=== PATIENT | female | born 1935 | race Caucasian/White ===

== ENCOUNTER 2016-06-16 00:59 | Inpatient (IN) | payer OTHER ==
[~2016-06-16] VITALS: Ht 165.1 cm; Wt 52.6 kg
--- NOTE | 2016-06-16 | NUR ---
MS RN NOTES: PATIENT DID NOT RECEIVE VANCOCIN 125MG PO DUE TO BEING NPO AND BEING AT RISK FOR ASPIRATION.
--- NOTE | 2016-06-16 01:00 | NUR ---
to bed 1 bib paramedics c/o n/v since last night. pt aaox3 no acute distress noted, resp even and unlabore. place pt on cardiac monitoring, continuous pox, o2@2l/nc. er md at bedside to eval pt with orders received. will carry out orders. pt pale, cool, nondiaphoretic. will continue to monitor pt closely.
--- NOTE | 2016-06-16 01:05 | NUR ---
started sl 18g to L forearm, blood drawn and sent to lab.
[2016-06-16] MEDS ORDERED: IV NS 0.9% 500 ML IV ONE (01:07)
[2016-06-16] MEDS ORDERED: IV SET PRIMARY 1 EA INFUS.SET MC ONE ×3 (01:07→12:33)
[2016-06-16] MEDS ORDERED: ONDANSETRON HCL/PF 4 MG/2 ML VIAL ONE ×2 (01:07→02:11)
[2016-06-16 01:17] LABS: BASOPHILS # (AUTO) 0.1 /CMM (0.0-0.2); BASOPHILS % (AUTO) 0.9 % (0.0-2.0); EOSINOPHILS % (AUTO) 0.2 % (0.0-6.0); HEMATOCRIT 38 % (33-45); HEMOGLOBIN 12.2 g/dL (11.5-14.8); LYMPHOCYTES # (AUTO) 0.3 /CMM (0.8-4.8); MEAN CORPUSCULAR HEMOGLOBIN 28 PG (26.0-33.0); MEAN CORPUSCULAR HGB CONC 33 g/dl (31.0-36.0); MEAN CORPUSCULAR VOLUME 85 fL (82-100); MONOCYTES # (AUTO) 0.1 /CMM (0.1-1.30); MONOCYTES % (AUTO) 0.6 % (2.0-12.0); NEUTROPHILS # (AUTO) 13.1 /CMM (1.8-8.9); NEUTROPHILS % (AUTO) 96.3 % (43.0-81.0); PLATELET COUNT (AUTO) 435 /CMM (150-450); RDW COEFFICIENT OF VARIATION 16.2 (11.5-15.0); RED BLOOD CELL COUNT(AUTO) 4.41 MIL/uL (4.0-5.2); WHITE BLOOD COUNT (AUTO) 13.6 K/uL (4.3-11.0)
--- NOTE | 2016-06-16 01:17 | NUR ---
pt transported to radiology for ct abd/pelvis.
[2016-06-16] MEDS ORDERED: LORA0.5T PO (01:21)
[2016-06-16] MEDS ORDERED: MIRT15TA3 PO (01:21)
[2016-06-16] MEDS ORDERED: AMLO5TAB2 PO (01:21)
[2016-06-16] MEDS ORDERED: CALC-25 PO (01:21)
[2016-06-16] MEDS ORDERED: RIVA1TAB PO (01:21)
[2016-06-16] MEDS ORDERED: TAMS-12 PO (01:21)
[2016-06-16] MEDS ORDERED: ATEN25TA PO (01:21)
[2016-06-16] MEDS ORDERED: ZOLP10TA6 PO (01:21)
[2016-06-16] MEDS ORDERED: LISI1TAB13 PO (01:21)
[2016-06-16] MEDS ORDERED: OLAN2.5T3 PO (01:21)
[2016-06-16] MEDS ORDERED: MELA5TAB21 PO (01:21)
[2016-06-16] MEDS ORDERED: MAGN400O4 PO (01:21)
[2016-06-16] MEDS ORDERED: BUSP10TA3 PO (01:21)
[2016-06-16] MEDS ORDERED: PARO10TA3 PO (01:21)
[2016-06-16] MEDS ORDERED: HYDR-3652 PO (01:21)
[2016-06-16 01:30] LABS: CARBON DIOXIDE 25 mmol/L (21-32); CHLORIDE 108 mmol/L (98-107); CREATININE 0.5 mg/dL (0.6-1.3); GLUCOSE 176 mg/dL (74-106); POTASSIUM 3.4 mmol/L (3.5-5.1); SODIUM SERUM 143 mmol/L (136-145); UREA NITROGEN, BLOOD 14 mg/dL (7-18)
[2016-06-16] MEDS ORDERED: IV NS 0.9% 500 ML BAG IV ONE (01:30)
[2016-06-16] MEDS ORDERED: ONDANSETRON HCL/PF 4 MG/2 ML VIAL IVP ONE (01:30)
[2016-06-16 01:35] LABS: ALANINE AMINOTRANSFERASE 10 U/L (12-78); ALBUMIN 1.8 g/dL (3.4-5.0); ALKALINE PHOSPHATASE 85 U/L (46-116); ASPARTATE AMINOTRANSFERASE 10 U/L (15-37); BILIRUBIN,DIRECT 0.1 mg/dL (0.0-0.2); BILIRUBIN,TOTAL 0.3 mg/dL (0.2-1.0); LIPASE 40 U/L (73-393); TOTAL PROTEIN, SERUM 5.4 g/dL (6.4-8.2)
[2016-06-16 01:37] LABS: TROPONIN I < 0.017 ng/mL (0.00-0.056)
--- NOTE | 2016-06-16 01:50 | NUR ---
female rn nandini at bedside for I&O cath, urine sample collected and sent to lab.
[2016-06-16 01:55] LABS: INR 1.16 (0.87-1.13); PROTHROMBIN TIME 12.2 SECS (9.5-12.7)
--- NOTE | 2016-06-16 02:13 | NUR ---
noted pt vomiting. er md made aware with orders recieved. will carry out orders.
--- NOTE | 2016-06-16 02:16 | NUR ---
rn at bedside to medicate pt.
[2016-06-16 02:28] LABS: APPEARANCE,URINE CLOUDY (CLEAR); COLOR,URINE YELLOW (YELLOW)
[2016-06-16 02:29] LABS: BILIRUBIN,URINE NEGATIVE (NEGATIVE); BLOOD, URINE 3+ Ery/uL (NEGATIVE); KETONES,URINE 1+ (NEGATIVE); LEUKOCYTE ESTERASE ,URINE 2+ (NEGATIVE); NITRITE, URINE NEGATIVE (NEGATIVE); PROTEIN,URINE TRACE mg/dl (NEGATIVE); UGLUCOSE NEGATIVE (NEGATIVE); UROBILINOGEN,URINE 0.2 EU/dL (0.2)
[2016-06-16] MEDS ORDERED: PIPERACILLIN /TAZOBACTAM 3.375 G in IV D5W 50 ML IV ONE (02:30)
[2016-06-16] MEDS ORDERED: ONDANSETRON HCL/PF 4 MG/2 ML VIAL IV ONE (02:30)
[2016-06-16] MEDS ORDERED: LEVOFLOXACIN 750 MG /D5W 150ML PIGGYBACK IV ONE (02:30)
[2016-06-16 02:32] LABS: ADD URINE CULTURE YES; BACTERIA,URINE 2+ /HPF (None Seen); RBC,URINE 51-80 /HPF (0-2); WBC,URINE 81-100 /HPF (0-3)
[2016-06-16 02:33] LABS: SQUAMOUS EPITHELIAL CELL,UR Few /HPF (None Seen)
[2016-06-16 02:34] LABS: CALCIUM OXALATE CRYSTALS,UR Few /HPF (None Seen); MUCUS,URINE Moderate /LPF (None Seen); YEAST,URINE Many /HPF (None Seen)
--- NOTE | 2016-06-16 02:46 | NUR ---
er talking to dr. yoan juarez pt admission.
[2016-06-16] MEDS ORDERED: PIPERACILLIN /TAZOBACTAM 3.375 G VIAL IV ONE (02:47)
--- NOTE | 2016-06-16 02:57 | NUR ---
report called to [employer].
--- NOTE | 2016-06-16 02:58 | NUR ---
precision layout worker at bedside for blood culture draw.
[2016-06-16] MEDS ORDERED: LORAZEPAM INJ 2 MG/ML VIAL IVP PRN (03:00)
[2016-06-16] MEDS ORDERED: ONDANSETRON HCL/PF 4 MG/2 ML VIAL IVP PRN (03:00)
[2016-06-16] MEDS ORDERED: ACETAMINOPHEN 325 MG TABLET PO PRN (03:00)
[2016-06-16] MEDS ORDERED: IV NS 0.9% 1,000 ML BAG IV ONE (03:00)
--- NOTE | 2016-06-16 03:22 | NUR ---
blood cultures drawn.
--- NOTE | 2016-06-16 03:40 | NUR ---
report called to [employer] [facility]. will transport pt via acls protocol.
--- NOTE | 2016-06-16 03:49 | NUR ---
TELE/RN NOTES PER CHARGE NURSE PATIENT WILL BE ADMITTED AT [facility].
[2016-06-16] MEDS ORDERED: IV SET PRIMARY PUMP SET 1 EA INFUS.SET MC ONE ×3 (03:56→22:45)
[2016-06-16] MEDS ORDERED: LEVOFLOXACIN 750 MG /D5W 150ML 150 ML IV ONE (03:56)
[2016-06-16] MEDS ORDERED: LORAZEPAM INJ 2 MG/ML VIAL ONE (03:57)
[2016-06-16] MEDS ORDERED: LORAZEPAM INJ 2 MG/ML VIAL IV PRN (04:00)
[2016-06-16] MEDS ORDERED: METRONIDAZOLE 500MG/ NS 100ML 100 ML IV SCH (05:00)
--- NOTE | 2016-06-16 05:02 | NUR ---
pt transported via acls protocol to tele room 320-1.
--- NOTE | 2016-06-16 05:10 | NUR ---
TELE/RN NOTES RECEIVED PATIENT FROM ER 80 YO FEMALE FROM LONG TERM REPORTED N/V WITH DX PNA/UTI. ALERTX2, COMFUSED AND FORGETFUL.REQUIRE TELE MONITORING AT SR 70.IV ON LEFT HAND GAUGE 18. ATB ADMINISTERED AND CONTINUED IN THE UNIT. SKIN WITH REDNESS ON SACRUM. CONTRATED RIGHT HAND AND BLE FEET. WILL PROVIDE CARE AND ENDORSE TO AM RN FOR JUAN. RECONCILE MED LIST.WILL CONTINUE TO MONITOR.
[2016-06-16 06:06] VITALS: BP 130/64
--- NOTE | 2016-06-16 06:50 | NUR ---
TELE/RN NOTES PHARMACY WAS CONTACTED REGARDING TIME DELAY FOR MEDICATION THAT NEEDS TO BE ADMINISTERED BY 0300 AND 0500. INFORMED THAT PATIENT WAS RECEIVED AT THE UNIT AT PAST 0510 THAT WAS NOT ABLE TO ADMINISTER BY TRANSIT VEHICLE INSPECTOR. PHARMACY INFORMED AND RN AM WILL BE ENDORSE FOR AM RN ADMINISTRATION OF MEDICATION FOR 0300 AND 0500 RESPECTIVELY.
--- NOTE | 2016-06-16 06:53 | NUR ---
TELE/RN NOTES PATIENT DAUGHTER CALLED AND GAVE NUMBER FOR ANY CONCERNS NAME IS VISHNU BOOGIE AT [phone].
--- NOTE | 2016-06-16 07:27 | NUR ---
CORE PASTER NOTES PATIENT RECEIVED ASLEEP IN BED AND AROUSABLE. ALERT AND RESPONSIVE TO VERBAL STIMULI. NO SIGNS OF PAIN NOTED. ON TELE-MONITORING WITH READING OF SR AND HR OF 82. CHECKED 02 SAT , PATIENT WITH SP02 OF 89%, L D RN MURILLO MADE AWARE WITH ORDER TO GIVE 02 INHALATION VIA N/C AT 2LPM. HEAD OF BED ELEVATED. PATIENT WITH IV ACCESS ON LEFT HAND INTACT AND PATENT. IVF OF NS STARTED ORDERED. CALL LIGHT WITHIN REACH, BED LOCKED AND LOW. ALL SAFETY PRECAUTIONS MAINTAINED. WILL CONTINUE TO MONITOR ACCORDINGLY.
[2016-06-16] MEDS ORDERED: RIVA10TA PO (07:33)
[2016-06-16] MEDS ORDERED: MELA5TAB PO (07:33)
[2016-06-16] MEDS ORDERED: MIRT7.5T10 PO (07:33)
[2016-06-16] MEDS ORDERED: MAGN400O6 PO (07:33)
[2016-06-16] MEDS: POTASSIUM CL. PREMIX PERIPHER. 50 ML IV SCH ×4 (07:54→12:42)
[2016-06-16 08:00] VITALS: BP 113/62
[2016-06-16] MEDS ORDERED: CEFTRIAXONE 1 G in IV D5W 50 ML IV SCH ×2 (08:00→10:00)
[2016-06-16] MEDS ORDERED: IV NS 0.9% 1,000 ML IV ONE (08:00)
[2016-06-16] MEDS ORDERED: SECONDARY IV SET 1 EA INFUS.SET MC ONE ×3 (08:02→22:41)
[2016-06-16] MEDS ORDERED: LORAZEPAM 0.5 MG TABLET PO PRN (10:00)
[2016-06-16] MEDS ORDERED: HYDROCODONE/APAP 5/325MG 1 EACH TABLET PO PRN (10:00)
[2016-06-16] MEDS ORDERED: ZOLPIDEM TARTRATE 10 MG TABLET PO PRN (10:00)
[2016-06-16] MEDS ORDERED: MAGNESIUM HYDROXIDE 30 ML UDC PO PRN (10:00)
[2016-06-16] MEDS ORDERED: Medication Not On Formulary EA (Melatonin 5 MG) PO PRN (10:00)
[2016-06-16] MEDS: METRONIDAZOLE 500MG/ NS 100ML 500 MG in PREMIX 1 EA IV SCH ×3 (10:20→22:46)
[2016-06-16] MEDS: PANTOPRAZOLE 40 MG VIAL IV SCH (10:29)
--- NOTE | 2016-06-16 10:34 | NUR ---
RN NOTES PATIENT V/S SIGNS AT 0830H WAS 118/74MMHG, P 89, RR 20, T 97.6F AND 02 SAT 94%. RECOVERY COLLECTOR MURILLO MADE AWARE AND SAID TO PUT IVF OF NS @ 50ML/HR AND WILL ORDER CHEST X-RAY AND TO COLLECT STOOL FOR CULTURE. WILL CONTINUE TO MONITO
--- NOTE | 2016-06-16 10:39 | NUR ---
RN NOTES PATIENT WITH POTASIUM LEVEL OF 1.4, BEING REPLACED WITH 4 BAGS OF 10MEQ IN 50ML DEXTROSE WATER. WILL CONTINUE TO MONITOR.
[2016-06-16] MEDS ORDERED: LEVOFLOXACIN 750 MG /D5W 150ML 750 MG in PREMIX 1 EA IV SCH (11:00)
[2016-06-16] MEDS: LISINOPRIL (20MG) 20 MG TABLET PO SCH (11:00)
[2016-06-16] MEDS: HYDROCHLOROTHIAZIDE 25 MG TABLET PO SCH (11:00)
--- NOTE | 2016-06-16 11:43 | NUR ---
RN NOTES PATIENT CHEST X-RAY DONE AWAITING FOR RESULTS. PATIENT DID LARGE BOWEL MOVEMENT X 1, NO FRESH BLOOD NOTED. STOOL COLLECTED FOR CULTURE AND CALLED LAB TO PICK-UP SPECIMEN.
--- NOTE | 2016-06-16 12:38 | NUR ---
RN NOTES PATIENT NOTED WITH LOW BP OF 87/55 AT 11AM AFTER HAVING A LARGE BOWEL MOVEMENT. Miriam MURILLO MADE AWARE AND SAID TO CLOSELY MONITOR PATIENT. AFTER 20 MINUTES, BLOOD PRESSURE WENT UP TO 125/62 MMHG. PATIENT STILL LOOKS WEAK BUT RESPONDING TO SIMPLE VERBAL COMMANDS. FAMILY AWARE OF PT'S CURRENT CONDITION. WILL CONTINUE TO CLOSELY MONITOR PATIENT.
[2016-06-16] MEDS: VANCOMYCIN 0.75 GM in IV D5W 250 ML IV SCH (12:47)
[2016-06-16] MEDS: CALCIUM CARB 250MG /VITAMIN D 1 UDTAB PO SCH ×2 (13:17→16:26)
[2016-06-16] MEDS: CEFEPIME 2 GM in IV D5W 100 ML IV SCH (13:22)
[2016-06-16] MEDS: SYSTANE ULTRA EACHEYE SCH ×2 (13:26→22:45)
[2016-06-16] MEDS ORDERED: FEE PK DOSING 1 MIN EA MC ONE (14:48)
[2016-06-16 16:00] VITALS: BP 103/57
[2016-06-16] MEDS: PAROXETINE HCL 10 MG TABLET PO SCH (16:26)
[2016-06-16] MEDS: busPIRone 5 MG TABLET PO SCH (16:26)
[2016-06-16] MEDS ORDERED: VANCOMYCIN HCL 125 MG CAPSULE PO SCH (18:00)
[2016-06-16] MEDS ORDERED: PANTOPRAZOLE 40 MG VIAL IV SCH (18:00)
--- NOTE | 2016-06-16 18:46 | NUR ---
MS RN CLOSING NOTES PATIENT IN BED WITH DAUGHTER AT BEDSIDE. NOTED MORE ALERT AND VERBALLY RESPONSIVE THIS AFTERNOON. TELE-MONITORING WAS DISCONTINUED THIS MORNING, DENIES ANY CHEST PAIN. IVF OF NS @ 50ML/HR IN PROGRESS, NO S/S OF INFILTRATION TO IV SITE NOTED. ALL NEEDS AND CARE WELL PROVIDED. DUE MEDS GIVEN ORDERED. CALL LIGHT WITHIN REACH. ALL SAFETY MEASURES IN PLACE. WILL ENDORSED TO ELEMENTARY SECRETARY NURSE FOR JUAN.
[2016-06-16] MEDS: ALBUMIN 25% 25 GM in PREMIX 1 EA IV SCH (18:58)
[2016-06-16] MEDS: VANCOMYCIN HCL 125 MG/2.5 ML ORAL.SUSP PO SCH (19:00)
--- NOTE | 2016-06-16 19:20 | NUR ---
MS RN OPENING NOTES: RECEIVED PATIENT IN BED ASLEEP. PT IS ALERT AND RESPONSIVE TO VERBAL STIMULI. NO SIGNS OR SYMPTOMS OF DISTRESS OR SOB NOTED. PT KEPT CLEAN, DRY, AND COMFORTABLE. PT ON 2LPM VIA NASAL CANNULA AND TOLERATED WELL. 02 SAT AT 99%. CALL LIGHT WITHIN PT'S REACH. BED KEPT IN LOCKED, LOWEST POSITION, AND SIDE RAILS X2 UP. PT HAS IV ON L HAND #18 AND IV ON R HAND RUNNING NORMAL SALINE AT 50ML/HR. BOTH ARE PATENT AND INTACT. WILL CONTINUE TO MONITOR PT.
[2016-06-16 20:00] VITALS: BP 121/61
[2016-06-16 20:33] VITALS: BP 121/61
[2016-06-16] MEDS: MIRTAZAPINE 15 MG TABLET PO SCH (22:00)
[2016-06-16] MEDS: OLANZAPINE 2.5 MG TABLET PO SCH (22:00)
--- NOTE | 2016-06-16 22:00 | NUR ---
MS RN NOTES: PATIENT DID NOT RECEIVE REMERON 7.5MG AND ZYPREXA 2.5MG DUE TO BEING NPO AND PATIENT BEING AT RISK FOR ASPIRATION.
[2016-06-16] MEDS: IV NS 0.9% 1,000 ML IV PRN (22:53)
[2016-06-17] MEDS: CEFEPIME 2 GM in IV D5W 100 ML IV SCH ×2 (00:38→13:08)
[2016-06-17] MEDS ORDERED: IV SET PRIMARY PUMP SET 1 EA INFUS.SET MC ONE ×2 (01:41→13:04)
[2016-06-17] MEDS: ALBUMIN 25% 25 GM in PREMIX 1 EA IV SCH ×2 (01:43→10:22)
[2016-06-17] MEDS: SYSTANE ULTRA EACHEYE SCH ×3 (04:01→20:26)
[2016-06-17] MEDS: METRONIDAZOLE 500MG/ NS 100ML 500 MG in PREMIX 1 EA IV SCH ×3 (04:02→20:26)
[2016-06-17] MEDS: VANCOMYCIN 0.75 GM in IV D5W 250 ML IV SCH (05:08)
[2016-06-17] MEDS: VANCOMYCIN HCL 125 MG/2.5 ML ORAL.SUSP PO SCH ×5 (06:00→23:47)
--- NOTE | 2016-06-17 06:37 | NUR ---
MS RN NOTES: VANCOCIN ORAL NOT ADMINISTERED AT THIS TIME, PT ON NPO PER MD, ALSO RISK FOR ASPIRATION.
[2016-06-17 06:58] LABS: BASOPHILS % (AUTO) 0.4 % (0.0-2.0); EOSINOPHILS % (AUTO) 0.1 % (0.0-6.0); HEMATOCRIT 28 % (33-45); HEMOGLOBIN 9.1 g/dL (11.5-14.8); LYMPHOCYTES # (AUTO) 0.4 /CMM (0.8-4.8); LYMPHOCYTES % (AUTO) 4.6 % (20.0-44.0); MEAN CORPUSCULAR HEMOGLOBIN 28 PG (26.0-33.0); MEAN CORPUSCULAR HGB CONC 33 g/dl (31.0-36.0); MEAN CORPUSCULAR VOLUME 86 fL (82-100); MONOCYTES # (AUTO) 0.5 /CMM (0.1-1.30); MONOCYTES % (AUTO) 6.7 % (2.0-12.0); NEUTROPHILS % (AUTO) 88.2 % (43.0-81.0); PLATELET COUNT (AUTO) 348 /CMM (150-450); RDW COEFFICIENT OF VARIATION 15.9 (11.5-15.0); RED BLOOD CELL COUNT(AUTO) 3.27 MIL/uL (4.0-5.2)
[2016-06-17 07:02] LABS: ALANINE AMINOTRANSFERASE 10 U/L (12-78); ALBUMIN 2.1 g/dL (3.4-5.0); ALKALINE PHOSPHATASE 55 U/L (46-116); ASPARTATE AMINOTRANSFERASE 9 U/L (15-37); BILIRUBIN,TOTAL 0.3 mg/dL (0.2-1.0); CALCIUM, SERUM 7.7 mg/dL (8.5-10.1); CARBON DIOXIDE 26 mmol/L (21-32); CHLORIDE 110 mmol/L (98-107); CREATININE 0.5 mg/dL (0.6-1.3); GLUCOSE 122 mg/dL (74-106); POTASSIUM 3.6 mmol/L (3.5-5.1); SODIUM SERUM 142 mmol/L (136-145); TOTAL PROTEIN, SERUM 4.8 g/dL (6.4-8.2); UREA NITROGEN, BLOOD 11 mg/dL (7-18)
[2016-06-17 07:04] LABS: INR 1.04 (0.87-1.13); PROTHROMBIN TIME 11.1 SECS (9.5-12.7)
[2016-06-17 07:07] LABS: TROPONIN I < 0.017 ng/mL (0.00-0.056)
[2016-06-17 07:13] LABS: CREATINE KINASE MB 0.6 ng/mL (0-3.6)
--- NOTE | 2016-06-17 07:13 | NUR ---
MS RN CLOSING NOTES: ALL NEEDS WERE ATTENDED. PATIENT IS IN BED ASLEEP. PT IS ALERT AND RESPONSIVE TO VERBAL STIMULI. SHE IS A/O X2 WITH CONFUSION. NO SIGNS OR SYMPTOMS OF DISTRESS OR SOB NOTED. PT KEPT CLEAN, DRY, AND COMFORTABLE. PT ON 2LPM VIA NASAL CANNULA AND TOLERATED WELL. CALL LIGHT WITHIN PT'S REACH. BED KEPT IN LOCKED, LOWEST POSITION, AND SIDE RAILS X2 UP. PT HAS IV ON L HAND #18 AND IV ON R HAND RUNNING NORMAL SALINE AT 50ML/HR. BOTH ARE PATENT AND INTACT. WILL ENDORSE TO DAY SHIFT NURSE FOR CONTINUITY OF CARE.
--- NOTE | 2016-06-17 07:15 | NUR ---
MS RN NOTES RECEIVED PATIENT IN BED, AWAKE BUT APPEARS SLEEPY. SPEECH UNCLEAR. ON OXYGEN AT 2L/MIN VIA NC, NO SOB NOTED. IV IN RIGHT HAND G 22 WITH IV NS INFUSING AT 50ML/HR. PATIENT IS NPO STATUS ORDERED. NO C/O PAIN AT THIS TIME. BED LOW AND LOCKED, SIDE RAILS UP X2. CALL LIGHT WITHIN REACH. WILL CONT TO MONITOR.
[2016-06-17 08:00] VITALS: BP_SYST 120; BP_SYST 129; BP_DIAS 72
[2016-06-17] MEDS: LISINOPRIL (20MG) 20 MG TABLET PO SCH (09:00)
[2016-06-17] MEDS: CALCIUM CARB 250MG /VITAMIN D 1 UDTAB PO SCH ×3 (09:00→17:59)
[2016-06-17] MEDS ORDERED: Medication Not On Formulary EA (Lisinopril/Hydrochlorothiazide (Lisinopril-Hctz 20-25 Mg PO SCH (09:00)
[2016-06-17] MEDS: HYDROCHLOROTHIAZIDE 25 MG TABLET PO SCH (09:00)
[2016-06-17] MEDS: PAROXETINE HCL 10 MG TABLET PO SCH ×2 (09:00→17:59)
[2016-06-17] MEDS: AMLODIPINE BESYLATE 5 MG TABLET PO SCH (09:00)
[2016-06-17] MEDS: TAMSULOSIN 0.4 MG CAP.SR.24H PO SCH (09:00)
[2016-06-17] MEDS: ATENOLOL 25 MG TABLET PO SCH (09:00)
[2016-06-17] MEDS: busPIRone 5 MG TABLET PO SCH ×3 (09:00→17:59)
[2016-06-17] MEDS: PANTOPRAZOLE 40 MG VIAL IV SCH (09:11)
--- NOTE | 2016-06-17 09:33 | NUR ---
PATIENT IN BED, SPEECH NOT CLEAR, APPEARS SLEEPY, BUT AROUSES EASILY. CURRENTLY NPO STATUS, AWAITING FOR ST EVAL. AM MEDS NON ADMINISTERED, INFORMED ENVIRONMENTAL QUALITY ANALYST-MURILLO.
[2016-06-17] MEDS ORDERED: SECONDARY IV SET 1 EA INFUS.SET MC ONE ×2 (10:20→18:14)
--- NOTE | 2016-06-17 11:12 | NUR ---
PATIENT IS SEEN BY HEMA, PATIENT MAY HAVE SIPS OF WATER ONLY.
--- NOTE | 2016-06-17 12:44 | NUR ---
PATIENT IS AWAKE, ALERT TO HER NAME AND FOLLOW SIMPLE COMMAND, ABLE TO SWALLOW SIPS OF WATER WITHOUT DIFFICULTY, NO EPISODES OF COUGHING. NOTIFIED DIRECTOR MATERNAL CHILD-MURILLO
--- NOTE | 2016-06-17 12:52 | NUR ---
PATIENT IN BED, APPEARS COMFORTABLE, NO C/O NAUSEA, NO EPISODE OF VOMITING SINCE THIS MORNING. RECEIVED PHONE CALL FROM DR. BURKS, PER MD PLACE PATIENT UNDER HIS CARE. INFORMED DR. BURKS THAT PATIENT WAS SEEN BY TURRET LATHE TENDER-MURILLO THIS MORNING AND ALSO AWAITING ST FOR EVAL. PER DR. BURKS PATIENT WAS ADMITTED FOR UTI, AND SHE CAN HAVE DIET NOW. WILL ORDER DIET AND INFORMED CHARGE TO UPDATE ASSIGN MD FOR THE PATIENT.
[2016-06-17] MEDS ORDERED: Z GUARD REMEDY 2 OZ OINT TP PRN (14:00)
[2016-06-17] MEDS: MORPHINE SULFATE INJ 2 MG/ML DISP.SYRIN IV PRN ×2 (15:33→22:16)
[2016-06-17 16:00] VITALS: BP_SYST 134; BP_SYST 137; BP_DIAS 68
--- NOTE | 2016-06-17 17:27 | NUR ---
PATIENT IS SEEN BY DR. KIMMIE GUALLPA MD REVIEWED BUN 11 CR 0.5, ORDERED TO CHANGED LEVAQUIN IV TO 500MG IV Q 24HR NOTED AND ACKNOWLEDGED.
[2016-06-17] MEDS ORDERED: LEVOFLOXACIN 500 MG /D5W 100ML 500 MG in PREMIX 1 EA IV SCH (18:00)
[2016-06-17] MEDS: RIVAROXABAN 10 MG TABLET PO SCH (18:04)
[2016-06-17] MEDS: DOCUSATE SODIUM 100 MG CAPSULE PO SCH (18:08)
--- NOTE | 2016-06-17 19:12 | NUR ---
MS RN CLOSING NOTES PATIENT IN BED, NOT IN DISTRESS. TOLERATING DIET WELL, NO EPISODE OF N/V DURING THE SHIFT. ON ANTIBIOTIC WITH NO ADVERSE REACTION, AFEBRILE. PATIENT HAD BOWEL MOVEMENT TODAY, TURN AND REPOSITION, KEPT CLEAN, DRY AND COMFORTABLE IN BED. CALL LIGHT WITHIN REACH. LABS IN AM. WILL ENDORSE TO POULTRY SLAUGHTERER RN FOR CONTINUITY OF CARE.
--- NOTE | 2016-06-17 19:30 | NUR ---
MS RN NOTE RECEIVED PATIENT FROM DAY SHIFT, PATIENT IS ALERT AND ORIENTEDX2, CONFUSED SOMETIMES, ON BED REST, NO FACIAL GRIMACE OR RESPIRATORY DISTRESS NOTED. IV ON LEFT HAND AND RIGHT HAND IS PATENT AND INTACT, FLUID IS RUNNING. SRX2, BED IN LOW POSITION, CALL LIGHT WITHIN REACH, WILL CONTINUE TO MONITOR PATIENT.
[2016-06-17 20:00] VITALS: BP 134/66
[2016-06-17] MEDS: LATANOPROST EYE DROP 0.005% 2.5 ML BOTTLE RIGHTEYE SCH (21:19)
[2016-06-17] MEDS: OLANZAPINE 2.5 MG TABLET PO SCH (21:19)
[2016-06-17] MEDS: MIRTAZAPINE 15 MG TABLET PO SCH (21:19)
--- NOTE | 2016-06-17 21:30 | NUR ---
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 NOTIFIED DR. BURKS AND GOT AN ORDER OF BACTROBAN BID NARES. PLACED AN ORDER AND WILL ENDORSE TO DAY SHIFT TMRW.
--- NOTE | 2016-06-17 22:19 | NUR ---
MS RN NOTE PATIENT COMPLAINS OF PAIN ON BOTH KNEE, MORPHINE 2MG IV GIVEN. WILL MONITOR FOR EFFECTIVENESS.
[2016-06-18] MEDS ORDERED: VANCOMYCIN 1 GM in IV D5W 250 ML IV SCH ×2
--- NOTE | 2016-06-18 01:10 | NUR ---
MS RN NOTE PATIENT LOOKS ANXIOUS AND KEEPS MOANING FOR PAIN ON KNEE, ATIVAN 1MG IVP. WILL MONITOR EFFECTIVENESS.
[2016-06-18] MEDS ORDERED: LEVOFLOXACIN 750 MG /D5W 150ML 750 MG in PREMIX 1 EA IV SCH (04:00)
[2016-06-18] MEDS: SYSTANE ULTRA EACHEYE SCH ×3 (04:35→21:11)
[2016-06-18] MEDS: METRONIDAZOLE 500MG/ NS 100ML 500 MG in PREMIX 1 EA IV SCH ×2 (04:35→13:40)
[2016-06-18] MEDS: IV NS 0.9% 1,000 ML IV PRN (04:35)
[2016-06-18] MEDS: VANCOMYCIN HCL 125 MG/2.5 ML ORAL.SUSP PO SCH ×3 (06:04→17:18)
--- NOTE | 2016-06-18 06:48 | NUR ---
MS RN NOTE PATIENT IS RESTING IN BED COMFORTABLY, NO FACIAL GRIMACE AND NO S/S OF RESPIRATORY DISTRESS NOTED. IV ON LEFT WRIST AND RIGHT HAND ARE PATENT AND INTACT, FLUID IS RUNNING. TURN AND REPOSITION Q2H, MORNING CARE RENDERED. WILL ENDORSE TO DAY SHIFT FOR JUAN.
--- NOTE | 2016-06-18 07:15 | NUR ---
RECEIVED PATIENT IN BED, ASLEEP, WITHOUT SOB, WITH NO DISTRESS, NO S/SX PAIN, RESTING COMFORTABLY, OXYGEN IN PLACE VIA N/C 2L/M TOLERATING WELL. IV PERIPHERAL LINE ON LEFT WRIST AND RFA INTACT, PATENT. BED IN LOW POSITION, 2SR UP FOR SAFETY, WITH CALL LIGHT WITHIN EASY REACH, WILL CONTINUE TO MONITOR ACCORDINGLY.
[2016-06-18 08:00] VITALS: BP 125/64
[2016-06-18 08:12] LABS: BASOPHILS # (AUTO) 0.1 /CMM (0.0-0.2); BASOPHILS % (AUTO) 1.1 % (0.0-2.0); EOSINOPHILS # (AUTO) 0.1 /CMM (0.0-0.7); EOSINOPHILS % (AUTO) 1.1 % (0.0-6.0); HEMATOCRIT 29 % (33-45); HEMOGLOBIN 9.5 g/dL (11.5-14.8); LYMPHOCYTES # (AUTO) 0.4 /CMM (0.8-4.8); MEAN CORPUSCULAR HEMOGLOBIN 28 PG (26.0-33.0); MEAN CORPUSCULAR HGB CONC 32 g/dl (31.0-36.0); MEAN CORPUSCULAR VOLUME 85 fL (82-100); MONOCYTES # (AUTO) 0.5 /CMM (0.1-1.30); MONOCYTES % (AUTO) 9.1 % (2.0-12.0); NEUTROPHILS # (AUTO) 4.9 /CMM (1.8-8.9); NEUTROPHILS % (AUTO) 81.7 % (43.0-81.0); PLATELET COUNT (AUTO) 312 /CMM (150-450); RDW COEFFICIENT OF VARIATION 16.3 (11.5-15.0); RED BLOOD CELL COUNT(AUTO) 3.43 MIL/uL (4.0-5.2)
[2016-06-18 08:24] LABS: CALCIUM, SERUM 7.9 mg/dL (8.5-10.1); CREATININE 0.4 mg/dL (0.6-1.3); MAGNESIUM 1.7 mg/dL (1.8-2.4)
[2016-06-18] MEDS: TAMSULOSIN 0.4 MG CAP.SR.24H PO SCH (09:09)
[2016-06-18] MEDS: ATENOLOL 25 MG TABLET PO SCH (09:09)
[2016-06-18] MEDS: CALCIUM CARB 250MG /VITAMIN D 1 UDTAB PO SCH ×3 (09:10→17:17)
[2016-06-18] MEDS: DOCUSATE SODIUM 100 MG CAPSULE PO SCH ×2 (09:10→17:16)
[2016-06-18] MEDS: busPIRone 5 MG TABLET PO SCH ×3 (09:10→17:16)
[2016-06-18] MEDS: AMLODIPINE BESYLATE 5 MG TABLET PO SCH (09:10)
[2016-06-18] MEDS: PAROXETINE HCL 10 MG TABLET PO SCH ×2 (09:10→17:16)
[2016-06-18] MEDS: HYDROCHLOROTHIAZIDE 25 MG TABLET PO SCH (09:10)
[2016-06-18] MEDS: LISINOPRIL (20MG) 20 MG TABLET PO SCH (09:10)
[2016-06-18] MEDS: PANTOPRAZOLE 40 MG VIAL IV SCH (09:11)
[2016-06-18] MEDS: MUPIROCIN OINT 2% 22 GM TUBE SCH ×2 (09:12→21:11)
[2016-06-18] MEDS ORDERED: POTASSIUM CHLORIDE 20 MEQ TAB.PRT.SR PO ONE (09:30)
[2016-06-18 10:00] VITALS: BP 125/64
[2016-06-18] MEDS ORDERED: SECONDARY IV SET 1 EA INFUS.SET MC ONE ×2 (10:17→13:44)
[2016-06-18] MEDS: FLUCONAZOLE (100 MG) 100 MG TABLET PO SCH (10:21)
[2016-06-18] MEDS: Magnesium 1GM/D5W 100ML PREMIX 100 ML IV SCH ×2 (10:22→11:25)
[2016-06-18] MEDS ORDERED: METRONIDAZOLE 500 MG TABLET PO SCH (13:00)
[2016-06-18 13:02] LABS: IRON, SERUM 50 ug/dl (50-175); TOTAL IRON BINDING CAPACITY 147 ug/dl (250-450)
[2016-06-18 16:00] VITALS: BP 111/62
[2016-06-18] MEDS: RIVAROXABAN 10 MG TABLET PO SCH (17:17)
[2016-06-18] MEDS ORDERED: LEVOFLOXACIN 250 MG /D5W 50 ML 250 MG in PREMIX 1 EA IV SCH (18:00)
--- NOTE | 2016-06-18 18:27 | NUR ---
MS/RN CLOSING NOTES PATIENT IS IN THE BED, AWAKE, ALERT, NO SOB, OXYGEN IN PLACE DELIVERING 2L/M VIA N/C TOLERATING WELL 96%, NO DISTRESS, HOB ELEVATED 35 DEGREE. IV PERIPHERAL LINES INTACT, PATENT ON RFA, AND LEFT WRIST. ASSISTED WITH MEALS, B/L/D TOLERATED WELL, NO CHANGES IN APPETITE. REMAINS IN CONTACT ISOLATION, BACTROBAN APPLIED TO NARES. ANTIBIOTICS ADMINISTERED ORDERED, NO S/SX DEHYDRATION NOTED. SEEN BY INFECTIONS DOCTOR, WITH NO NEW ORDERS, OR CHANGES. PATIENT TURNED REPOSITIONED EVERY 2 HOURS, KEPT CLEAN, DRY, COMFORTABLE, NEEDS MET IN TIMELY MANNER, WITH CALL LIGHT WITHIN EASY REACH ALL THE TIME, BED IN LOW POSITION, 2 SR UP FOR SAFETY, WILL ENDORSE TO THE ANDROID SOFTWARE ENGINEER NURSE ACCORDINGLY FOR JUAN
--- NOTE | 2016-06-18 19:30 | NUR ---
MS/RN OPENING NOTES PT ASLEEP, EASILY AROUSABLE TO NAME. A/OX2. ON 2LPM O2 VIA NC. NO SOB OR DISTRESS NOTED. NO COMPLAINTS OF PAIN AT THIS TIME. BREATHING EVEN AND UNLABORED. IV TO LEFT WRIST AND RFA PATENT AND INTACT RUNNING IVF ORDERED. NO S/S OF INFILTRATION NOTED. EXTREMITIES OFFLOADED. BED IN LOW/LOCKED POSITION, CALL LIGHT IN REACH, BED ALARM ON. BED RAILS UPX2. WILL CONTINUE TO MONITOR
[2016-06-18 20:00] VITALS: BP 99/52
[2016-06-18] MEDS: MIRTAZAPINE 15 MG TABLET PO SCH (21:21)
[2016-06-18] MEDS: OLANZAPINE 2.5 MG TABLET PO SCH (21:21)
[2016-06-18] MEDS: LATANOPROST EYE DROP 0.005% 2.5 ML BOTTLE RIGHTEYE SCH (21:21)
--- NOTE | 2016-06-19 02:00 | NUR ---
MS/RN NOTES BREATHING EVEN AND UNLABORED. NO S/S OF DISTRESS. WILL CONTINUE TO MONITOR
[2016-06-19] MEDS: SYSTANE ULTRA EACHEYE SCH ×2 (06:14→10:36)
--- NOTE | 2016-06-19 07:30 | NUR ---
MS/RN CLOSING NOTES PT ASLEEP, EASILY AROUSABLE TO NAME. PT IS HARD OF HEARING. REMAINS ON 2LPM O2 VIA NC. NO SOB OR DISTRESS NOTED. BREATHING EVEN AND UNLABORED. NOTED PAIN TO RIGHT KNEE INTERMITTENTLY THROUGHOUT SHIFT BUT REPOSITIONING ALLEVIATED THE DISCOMFORT. IV TO LEFT WRIST AND RFA PATENT AND INTACT RUNNING IVF ORDERED. EXTREMITIES OFFLOADED, TURNED AND REPOSITIONED Q2H AND PRN. BED IN LOW/LOCKED POSITION, CALL LIGHT IN REACH, BED ALARM ON. BED RAILS UPX2. ALL NEEDS MET AND ATTENDED TO, MADE PT COMFORTABLE THROUGHOUT SHIFT. ENDORSED TO AM SHIFT JUAN.
--- NOTE | 2016-06-19 07:30 | NUR ---
MS/RN OPENING NOTES PT. IS IN BED WITH HOB FLAT. PT. IS AWAKE, A&OX2. NO SOB, NOT IN DISTRESS, AND BREATHING EVENLY WITH A NASAL CANULA 2L/MIN. PT. 2 SIDE RAILS UP, BED IN LOW POSITION, AND CALL LIGHT WITHIN REACH.
[2016-06-19 08:00] VITALS: BP 128/81
[2016-06-19 08:15] LABS: CALCIUM, SERUM 6.7 mg/dL (8.5-10.1); CREATININE 0.4 mg/dL (0.6-1.3); MAGNESIUM 1.5 mg/dL (1.8-2.4)
[2016-06-19] MEDS ORDERED: LEVO500T15 PO (08:33)
[2016-06-19] MEDS ORDERED: FLUC150T PO (08:35)
[2016-06-19] MEDS: PANTOPRAZOLE 40 MG VIAL IV SCH (10:33)
[2016-06-19] MEDS: busPIRone 5 MG TABLET PO SCH ×3 (10:33→18:38)
[2016-06-19] MEDS: CALCIUM CARB 250MG /VITAMIN D 1 UDTAB PO SCH ×3 (10:33→18:38)
[2016-06-19] MEDS: ATENOLOL 25 MG TABLET PO SCH (10:34)
[2016-06-19] MEDS: HYDROCHLOROTHIAZIDE 25 MG TABLET PO SCH (10:34)
[2016-06-19] MEDS: DOCUSATE SODIUM 100 MG CAPSULE PO SCH ×2 (10:34→18:38)
[2016-06-19] MEDS: PAROXETINE HCL 10 MG TABLET PO SCH ×2 (10:34→18:37)
[2016-06-19] MEDS: TAMSULOSIN 0.4 MG CAP.SR.24H PO SCH (10:35)
[2016-06-19] MEDS: FLUCONAZOLE (100 MG) 100 MG TABLET PO SCH (10:35)
[2016-06-19] MEDS: LISINOPRIL (20MG) 20 MG TABLET PO SCH (10:43)
[2016-06-19] MEDS: MUPIROCIN OINT 2% 22 GM TUBE SCH (10:44)
[2016-06-19] MEDS: AMLODIPINE BESYLATE 5 MG TABLET PO SCH (10:45)
[2016-06-19] MEDS: IV NS 0.9% 1,000 ML IV PRN (11:17)
[2016-06-19] MEDS ORDERED: MAGNESIUM OXIDE 400 MG TABLET PO ONE (11:30)
[2016-06-19] MEDS: POTASSIUM CHLORIDE 20 MEQ TAB.PRT.SR PO SCH ×3 (11:37→14:34)
[2016-06-19] MEDS ORDERED: ALBUMIN 25% 25 GM in PREMIX 1 EA IV SCH (13:00)
[2016-06-19] MEDS ORDERED: IV SET PRIMARY 1 EA INFUS.SET MC ONE (13:39)
[2016-06-19] MEDS ORDERED: IV SET PRIMARY PUMP SET 1 EA INFUS.SET MC ONE (14:39)
[2016-06-19 16:00] VITALS: BP_SYST 122; BP_SYST 125; BP_DIAS 62; BP_DIAS 64
[2016-06-19] MEDS: RIVAROXABAN 10 MG TABLET PO SCH (18:38)
--- NOTE | 2016-06-19 19:00 | NUR ---
MS/FLOOR SANDING MACHINE OPERATOR PT. WAS DISCHARGED TO [facility] BY DR. BURKS. PT. WAS IN STABLE CONDITION, VITAL SIGNS STABLE, PT. WAS AWAKE, A&OX2. ALBUMIN, MAGNESIUM AND POTASSIUM WAS ADMINISTERED BEFORE DISCHARGE. BOTH IV'S WERE REMOVED, AND ID BAND. REPORT WAS GIVEN TO EMT, AND TO THE CLAM DREDGE BOAT CAPTAIN OF ASSISTED LIVING FACILITYJEFF.
[2016-06-20 13:03] LABS: CANCER AG, 125 46.6 U/mL (0.0-38.1); CARCINOEMBRYONIC AG (CEA) 1.2 ng/mL (0.0-4.7)
== END 2016-06-19 19:00 | DRG 871 ==
LOC: ER 01:01 → EDBD 03:43 → TELE1 03:43 → TELE 06:03 → MED 09:10
PROVIDERS: ADMIT Internal Medicine; ATTEND Internal Medicine
DX: A41.9 Sepsis, unspecified organism (principal); G93.41 Metabolic encephalopathy; E43 Unspecified severe protein-calorie malnutrition; J69.0 Pneumonitis due to inhalation of food and vomit; A09 Infectious gastroenteritis and colitis, unspecified; Z68.1 Body mass index [BMI] 19.9 or less, adult; B37.49 Other urogenital candidiasis; F03.90 Unspecified dementia, unspecified severity, without behavioral disturbance, psychotic disturbance, mood disturbance, and anxiety; E83.42 Hypomagnesemia; E87.6 Hypokalemia; F32.9 Major depressive disorder, single episode, unspecified; F41.9 Anxiety disorder, unspecified; I10 Essential (primary) hypertension; I27.2 Other secondary pulmonary hypertension; N20.0 Calculus of kidney; N31.9 Neuromuscular dysfunction of bladder, unspecified; R33.8 Other retention of urine; Z79.01 Long term (current) use of anticoagulants; E88.09 Other disorders of plasma-protein metabolism, not elsewhere classified; Z91.81 History of falling; K57.30 Diverticulosis of large intestine without perforation or abscess without bleeding; Z86.711 Personal history of pulmonary embolism; M19.90 Unspecified osteoarthritis, unspecified site; M62.50 Muscle wasting and atrophy, not elsewhere classified, unspecified site; R62.7 Adult failure to thrive; K80.20 Calculus of gallbladder without cholecystitis without obstruction; D63.8 Anemia in other chronic diseases classified elsewhere; Z22.322 Carrier or suspected carrier of Methicillin resistant Staphylococcus aureus; R93.5 Abnormal findings on diagnostic imaging of other abdominal regions, including retroperitoneum; E27.9 Disorder of adrenal gland, unspecified; R65.20 Severe sepsis without septic shock
CPT/HCPCS: 36415; 71010-TC; 80048-TC; 80053-TC; 80076-TC; 81000-TC; 82040-TC; 82378; 82553-TC; 82728-TC; 83540-TC; 83605-TC; 83690-TC; 83735-TC; 84484-TC; 85025-TC; 85385-TC; 85610-TC; 85730-TC; 86301; 86304; 87040-TC; 87045-TC; 87081-TC; 87086-TC; 92611-TC; 93307-TC; A4216; A4606; A6402; C9113; J0692; J0696; J1956; J2060; J2270; J2405; J2543; J3370; J3475; J3480; J3490; J7030; J7040; J7060; P9047; Z7610